=== PATIENT | female | born 1960 | race Caucasian/White ===

== ENCOUNTER → 2018-03-18 | Outpatient (CLI) | payer OTHER ==
[~2018-03-18] MED LIST: BUSP5; Bactrim Ds Tab1 EACH PO; CEPH500 PO; CLON.5 PO; CLON1 PO; DIPH50; DULO30 PO; ECHINACEA PO; ESCI10; ESCI20 PO; Flonase 0.05% N16 GM; HYDACE5 PO; IBUP200 PO; IBUP600 PO; KAVA KAVA; LAMO100; LAMO100 PO; LAMO25; LEVFLO500 PO; META800 PO; Mucinex600 MG; OXYACE5T PO; PARO10; PRAZ1 PO; PROM25 PO; Percocet 5-3251 EACH PO; RANI150; RANI150 PO; RXLORA1 PO; SERT50 PO; ST. JOHN'S WORT; VALERIAN; Zoloft100 MG PO; [UNRECOGNIZED DRUG - OTHER]; [UNRECOGNIZED DRUG - OTHER] PO
[2018-03-18 15:53] LABS: BASOPHILS ABSOLUTE AUTO 0.03 K/mm3 (0.00-0.23); BASOPHILS PERCENT AUTO 0 % (0-2); EOSINOPHILS ABSOLUTE AUTO 0.07 K/mm3 (0.00-0.68); EOSINOPHILS PERCENT AUTO 1 % (0-6); Hematocrit 41.2 % (33.0-51.0); Hemoglobin 13.5 g/dL (11.5-16.0); IMMATURE GRAN ABSOLUTE AUTO 0.01 K/mm3 (0.00-0.10); IMMATURE GRAN PERCENT AUTO 0 % (0-1); LYMPHOCYTES ABSOLUTE AUTO 2.83 K/mm3 (0.84-5.20); LYMPHOCYTES PERCENT AUTO 42 % (21-46); MONOCYTES ABSOLUTE AUTO 0.54 K/mm3 (0.16-1.47); MONOCYTES PERCENT AUTO 8 % (4-13); Mean Corpuscular HGB 28.7 pg (26.0-34.0); Mean Corpuscular HGB Conc 32.8 g/dL (31.5-36.5); Mean Corpuscular Volume 88 fL (80-100); Mean Platelet Volume 10.2 fL (9.1-12.4); NEUTROPHILS ABSOLUTE AUTO 3.31 K/mm3 (1.96-9.15); NEUTROPHILS PERCENT AUTO 49 % (41-73); Platelet Count 249 K/mm3 (150-400); RDW Coefficient Variation 12.2 % (11.7-14.2); RDW Standard Deviation 39.3 fL (35.1-46.3); Red Blood Cell Count 4.71 M/mm3 (3.80-5.20); White Blood Cell Count 6.79 K/mm3 (4.00-11.30)
[2018-03-18 16:04] LABS: Bilirubin, Total 0.3 mg/dL (0.1-1.0); Calcium, Blood 8.7 mg/dL (8.5-10.1); Creatinine, Blood 1.1 mg/dL (0.40-1.00); Potassium, Blood 4.1 mmol/L (3.5-5.5)
[2018-03-18 16:25] LABS: Albumin/Globulin Ratio 1.1 (0.8-1.8); Globulin, Blood 3.6 g/dL (2.2-4.0); Thyroid Stimulating Hormone 3.195 uIU/mL (0.360-4.800); Total Protein, Blood 7.6 g/dL (6.4-8.2)
== END | disposition home or self-care (01) ==
LOC: LAB SHORT 15:47 → LAB EV 15:47
PROVIDERS: Physician Assistant
DX: R10.9 Unspecified abdominal pain (principal); R53.83 Other fatigue
CPT/HCPCS: 80053; 83690; 84443; 85025

== ENCOUNTER 2018-06-30 09:06 | Day surgery (SDC) | payer OTHER ==
[~2018-06-30] VITALS: Ht 162.6 cm; Wt 90.9 kg
[~2018-06-30 09:06] MED LIST changes: +ALBU90OI INH; +HYDPAM50 PO; +Lamictal200 MG PO
[2018-06-30] MEDS ORDERED: Estrace Vagin42.5 GM (09:31)
== END 2018-06-30 11:49 | disposition home or self-care (01) ==
LOC: ORSCSDS 09:06
PROVIDERS: Internal Medicine Gastroenterology
PROC: 0DBH8ZX Excision of Cecum, Via Natural or Artificial Opening Endoscopic, Diagnostic (ICD-10-PCS; principal; 2018-06-30 10:30)
PROC: 0DBC8ZX Excision of Ileocecal Valve, Via Natural or Artificial Opening Endoscopic, Diagnostic (ICD-10-PCS; principal; 2018-06-30 10:30)
DX: Z12.11 Encounter for screening for malignant neoplasm of colon (principal); D12.0 Benign neoplasm of cecum; Z86.010 Personal history of colon polyps; E55.9 Vitamin D deficiency, unspecified; F31.9 Bipolar disorder, unspecified; K57.30 Diverticulosis of large intestine without perforation or abscess without bleeding; E78.5 Hyperlipidemia, unspecified; E66.9 Obesity, unspecified; Z68.35 Body mass index [BMI] 35.0-35.9, adult; Z79.899 Other long term (current) drug therapy; J45.909 Unspecified asthma, uncomplicated
CPT/HCPCS: 88305; J1980; J7120

== ENCOUNTER → 2018-07-15 | Outpatient (CLI) | payer OTHER ==
[~2018-07-15] MED LIST changes: +Estrace Vagin42.5 GM
== END ==
LOC: LAB SHORT 17:52 → LAB 17:52
DX: L29.3 Anogenital pruritus, unspecified (principal)
CPT/HCPCS: 87070; 87205

== ENCOUNTER → 2018-10-28 | Outpatient (CLI) | payer OTHER | LOC: LAB SHORT 14:30 → LAB 14:30 | DX: B37.2 Candidiasis of skin and nail (principal) | CPT/HCPCS: 87070; 87077; 87147; 87186; 87205 ==

== ENCOUNTER → 2018-11-26 | Outpatient (CLI) | payer OTHER | LOC: LAB 18:11 → LAB SHORT 18:11 | DX: Z09 Encounter for follow-up examination after completed treatment for conditions other than malignant neoplasm (principal); Z86.14 Personal history of Methicillin resistant Staphylococcus aureus infection | CPT/HCPCS: 87081 ==

== ENCOUNTER → 2018-12-02 | Outpatient (CLI) | payer OTHER | LOC: LAB 19:09 → LAB SHORT 19:09 | DX: Z09 Encounter for follow-up examination after completed treatment for conditions other than malignant neoplasm (principal); Z86.14 Personal history of Methicillin resistant Staphylococcus aureus infection | CPT/HCPCS: 87070; 87077; 87147; 87186; 87205 ==

== ENCOUNTER → 2019-01-02 | Outpatient (CLI) | payer OTHER ==
[2019-01-03 09:24] LABS: Candida species (DNA Probe) Negative (NEGATIVE); G. vaginalis (DNA Probe) Negative (NEGATIVE); T. vaginalis (DNA Probe) Negative (NEGATIVE)
== END | disposition home or self-care (01) ==
LOC: LAB 13:53 → LAB SHORT 13:53
PROVIDERS: Internal Medicine
DX: B37.3 Candidiasis of vulva and vagina (principal)
CPT/HCPCS: 87480; 87510; 87660

== ENCOUNTER → 2019-02-24 | Outpatient (CLI) | payer OTHER | END | disposition home or self-care (01) | LOC: LAB EV 09:16 → LAB SHORT 09:16 | DX: N76.4 Abscess of vulva (principal) | CPT/HCPCS: 87070; 87075; 87077; 87147; 87186; 87205 ==

== ENCOUNTER → 2019-03-03 | Outpatient (CLI) | payer OTHER ==
[2019-03-04 06:29] LABS: Candida species (DNA Probe) Negative (NEGATIVE); G. vaginalis (DNA Probe) Negative (NEGATIVE); T. vaginalis (DNA Probe) Negative (NEGATIVE)
== END | disposition home or self-care (01) ==
LOC: OLS 14:31 → LAB SHORT 14:31
PROVIDERS: Internal Medicine
DX: B37.3 Candidiasis of vulva and vagina (principal)
CPT/HCPCS: 87070; 87205; 87480; 87510; 87660

== ENCOUNTER → 2019-04-13 | Outpatient (CLI) | payer OTHER | END | disposition home or self-care (01) | LOC: PLD 13:47 → LAB SHORT 13:47 | DX: N76.3 Subacute and chronic vulvitis (principal) | CPT/HCPCS: 88305 ==

== ENCOUNTER 2019-10-07 06:50 | Day surgery (SDC) | payer OTHER ==
[~2019-10-07] VITALS: Ht 162.6 cm; Wt 89.0 kg
--- NOTE | 2019-10-07 08:09 | NUR ---
10/07/19 0809 Nataly Willson 0805 TIME OUT AND SITE CHECK DONE WITH DR. WEBSTER AND DR NICOLE.
== END 2019-10-07 09:06 | disposition home or self-care (01) ==
LOC: ORSCSDS 06:50
PROVIDERS: Orthopaedic Surgery
PROC: 01N54ZZ Release Median Nerve, Percutaneous Endoscopic Approach (ICD-10-PCS; principal; 2019-10-07 08:00)
DX: G56.02 Carpal tunnel syndrome, left upper limb (principal); J45.909 Unspecified asthma, uncomplicated; E78.5 Hyperlipidemia, unspecified; F31.9 Bipolar disorder, unspecified; Z79.899 Other long term (current) drug therapy
CPT/HCPCS: J0690; J1885; J2250; J2704; J3010; J7120

== ENCOUNTER → 2020-03-14 | Outpatient (CLI) | payer OTHER ==
[~2020-03-14] MED LIST changes: +BETA.05TCA; +CIDAFLEX TABLE1 EAC1 PO; +MULTI-VITAMIN1 EAC2 PO; +PRAZ2; +Triamcinolone A15 GM
== END ==
LOC: LAB SHORT 15:19 → LAB 15:19
DX: A49.02 Methicillin resistant Staphylococcus aureus infection, unspecified site (principal)
CPT/HCPCS: 87081

== ENCOUNTER 2020-03-24 08:51 | Day surgery (SDC) | payer OTHER ==
[~2020-03-24] VITALS: Ht 162.6 cm; Wt 84.2 kg
[~2020-03-24 08:51] MED LIST changes: -BETA.05TCA; -PRAZ2; -Triamcinolone A15 GM
[2020-03-24] MEDS ORDERED: Triamcinolone A15 GM (09:29)
[2020-03-24] MEDS ORDERED: PRAZ2 (09:29)
[2020-03-24] MEDS ORDERED: BETA.05TCA (09:29)
--- NOTE | 2020-03-24 10:37 | NUR ---
03/24/20 Shayna Norris SONJA AREA PREPPED BY [email or web address] W/ BETADINE SOLUTION ABDOMINAL AREA PREPPED BY [email or web address] WITH DURAPREP
== END 2020-03-24 12:10 | disposition home or self-care (01) ==
LOC: ORSCSDS 08:51
DX: R10.2 Pelvic and perineal pain (principal); N80.3 Endometriosis of pelvic peritoneum; K66.0 Peritoneal adhesions (postprocedural) (postinfection); J45.909 Unspecified asthma, uncomplicated; Z79.899 Other long term (current) drug therapy; E66.9 Obesity, unspecified; Z68.32 Body mass index [BMI] 32.0-32.9, adult
CPT/HCPCS: 88305; J0171; J0690; J1100; J1885; J2250; J2405; J2704; J2710; J3010; J7120

== ENCOUNTER 2022-05-21 12:42 | Day surgery (SDC) | payer OTHER ==
[~2022-05-21] VITALS: Ht 162.6 cm; Wt 87.8 kg
[~2022-05-21 12:42] MED LIST changes: +BETA.05TCA; +PRAZ2; +Triamcinolone A15 GM
--- NOTE | 2022-05-21 16:41 | NUR ---
05/21/22 1641 NIKO PITTS IV DC POSTOP IN EXAM ROOM.
== END 2022-05-21 16:32 | disposition home or self-care (01) ==
LOC: ORSCSDS 12:42
PROVIDERS: Internal Medicine Gastroenterology
PROC: 0DBP8ZX Excision of Rectum, Via Natural or Artificial Opening Endoscopic, Diagnostic (ICD-10-PCS; principal; 2022-05-21 15:00)
PROC: 0DBK8ZX Excision of Ascending Colon, Via Natural or Artificial Opening Endoscopic, Diagnostic (ICD-10-PCS; principal; 2022-05-21 15:00)
DX: K62.5 Hemorrhage of anus and rectum (principal); K63.5 Polyp of colon; R19.4 Change in bowel habit; K62.89 Other specified diseases of anus and rectum; L90.0 Lichen sclerosus et atrophicus; J45.909 Unspecified asthma, uncomplicated; Z79.899 Other long term (current) drug therapy
CPT/HCPCS: 88305; J0330; J0461; J2405; J2704; J7120; Q9968

== ENCOUNTER 2024-08-26 10:45 | Day surgery (SDC) | payer OTHER ==
[~2024-08-26] VITALS: Ht 162.6 cm; Wt 86.2 kg
[~2024-08-26 10:45] MED LIST changes: +Balanced Salt Epinephrine Irrigation Solution 500 mL IR SCH; +Diazepam 5 MG Tab PO PRN; +Diazepam 5 MG Tab PO SCH; +Lidocaine HCl/Pf 1% 5 ML VIAL XX SCH; +Moxifloxacin HCL 0.5 MG/0.1 ML 0.4MLSYR LEFTEYE SCH; +Ondansetron 4 MG SoluTab MM PRN; +PHENYLEPHRINE\\TROPICAMIDE\\TETRACAINE OPHTHALMIC DILATING SOLN LEFTEYE PRN; +Povidone-Iodine 450 DROP/30 ML Solution LEFTEYE SCH; +Povidone-Iodine 450 DROP/30 ML Solution ONE; +Tetracaine HCl/Pf 0.5% Opth Soln 4 ml ONE
[2024-08-26] MEDS ORDERED: Diazepam 10 MG Tab ONE (10:47)
[2024-08-26] MEDS ORDERED: PANT20 (11:11)
[2024-08-26] MEDS ORDERED: ACYC400 (11:11)
--- NOTE | 2024-08-26 11:21 | NUR ---
08/26/24 1121 Ninfa Nettles PT STATES ANXIETY LEVEL IN PREOP BEFORE PO VALIUM 10MG IS 10/22. PT IS ON CONTINUOUS PULSE OX MONITOR CALL LIGHT IN HAND
[2024-08-26] MEDS ORDERED: Tetracaine HCl 0.5% Opth Soln 15 ml LEFTEYE ONE (11:35)
--- NOTE | 2024-08-26 11:39 | NUR ---
08/26/24 1139 Shayna Moeller N 142/73 20 66 100 ON 8L BLOW BY O2 PT RESTING COMFORTABLY, NO SIGNS OF DISTRESS.
[2024-08-26 11:59] VITALS: BP 137/75
== END 2024-08-26 12:12 | disposition home or self-care (01) ==
LOC: ORSCSDS 10:45
PROVIDERS: Student in an Organized Health Care Education/Training Program
PROC: 08RK3JZ Replacement of Left Lens with Synthetic Substitute, Percutaneous Approach (ICD-10-PCS; principal; 2024-08-26 12:00)
DX: H25.813 Combined forms of age-related cataract, bilateral (principal); F31.9 Bipolar disorder, unspecified; H35.30 Unspecified macular degeneration; Z79.899 Other long term (current) drug therapy
CPT/HCPCS: A9270; V2632

== ENCOUNTER → 2025-02-05 | Outpatient (CLI) | payer OTHER ==
[~2025-02-05] MED LIST changes: +ACYC400; -Balanced Salt Epinephrine Irrigation Solution 500 mL IR SCH; -Diazepam 5 MG Tab PO PRN; -Diazepam 5 MG Tab PO SCH; -Lidocaine HCl/Pf 1% 5 ML VIAL XX SCH; -Moxifloxacin HCL 0.5 MG/0.1 ML 0.4MLSYR LEFTEYE SCH; -Ondansetron 4 MG SoluTab MM PRN; +PANT20; -PHENYLEPHRINE\\TROPICAMIDE\\TETRACAINE OPHTHALMIC DILATING SOLN LEFTEYE PRN; -Povidone-Iodine 450 DROP/30 ML Solution LEFTEYE SCH; -Povidone-Iodine 450 DROP/30 ML Solution ONE; -Tetracaine HCl/Pf 0.5% Opth Soln 4 ml ONE
== END ==
LOC: LAB SHORT 12:08 → LAB 12:08
DX: C44.92 Squamous cell carcinoma of skin, unspecified (principal)
CPT/HCPCS: 88305